=== PATIENT | female | born 1940 | race Caucasian/White ===

== ENCOUNTER 2019-04-04 10:54 | Outpatient (CLI) | payer MEDICARE, MEDICAID ==
--- NOTE | 2019-04-04 11:19 | ULT ---
ABDOMINAL ULTRASOUND HISTORY: Nausea and vomiting FINDINGS: Liver: There are areas of shadowing from adjacent ribs, but no focal hepatic lesion is identified. Gallbladder: Not visualized. The patient reports history of prior cholecystectomy. Common duct: Common duct is normal in caliber measuring 0.6 cm in diameter. Pancreas: The limited visualized pancreas demonstrates a normal sonographic appearance. IVC: Limited visualized IVC has a normal sonographic appearance. Aorta: Mild atherosclerotic plaque seen. Spleen: Within normal limits. Kidneys: Kidneys demonstrate a normal sonographic appearance bilaterally with the right kidney measur ing 9.9 cm in length, and the left kidney measures 9.1 cm in length. IMPRESSION: 1. Cholecystectomy. The common duct is normal in caliber.
== END 2019-04-04 10:55 | disposition home or self-care (01) ==
LOC: BICULT 10:54
PROVIDERS: ATTEND Internal Medicine
DX: K21.9 Gastro-esophageal reflux disease without esophagitis (principal); R11.2 Nausea with vomiting, unspecified; R19.4 Change in bowel habit; Z90.49 Acquired absence of other specified parts of digestive tract
CPT/HCPCS: 93975